=== PATIENT | male | born 1950 | race African-American/Black ===

== ENCOUNTER 2019-09-06 23:58 | Emergency (ER) | payer BC, SELFPAY ==
[~2019-09-06 23:58] MED LIST: Calcium Chloride 1 GM/10 ML Abboject SYRINGE ONE; EPINEPHrine 1 MG/10 ML Abboject SYRINGE ONE
== END 2019-09-07 02:10 | disposition expired ==
LOC: BURERS 23:58
DX: I46.9 Cardiac arrest, cause unspecified (principal)
CPT/HCPCS: 92950; J0171